=== PATIENT | female | born 1950 | race Caucasian/White ===

== ENCOUNTER 2017-08-04 08:38 | Day surgery (SDC) | payer OTHER ==
[~2017-08-04 08:38] MED LIST: CLONAZEPAM0.5 MG PO; PAXIL20 MG PO; ZANTAC300 MG PO
== END 2017-08-04 18:00 | disposition home or self-care (01) ==
LOC: CIR.AMB 08:38
DX: N85.00 Endometrial hyperplasia, unspecified (principal)

== ENCOUNTER 2018-02-02 07:04 | Day surgery (SDC) | payer OTHER ==
[~2018-02-02 07:04] MED LIST changes: +ZOCOR20 MG PO
== END 2018-02-02 14:20 | disposition home or self-care (01) ==
LOC: CIR.AMB 07:04
DX: N95.0 Postmenopausal bleeding (principal)